=== PATIENT | female | born 1975 | race Caucasian/White ===

== ENCOUNTER → 2017-09-30 | Outpatient (CLI) | payer BC, OTHER ==
[~2017-09-30] MED LIST: CYCL-259 PO; GABA300C10 PO; HYDR-3307 PO; LAMO100T PO; LORA1TAB PO; ZOLP12.52 PO
[2017-09-30 15:30] LABS: HEMATOCRIT 38.2 % (34.6-47.8); HEMOGLOBIN 12.9 g/dL (11.7-16.4); WHITE BLOOD COUNT 6.7 x10^3/uL (3.4-10)
[2017-09-30 15:39] LABS: ASPARTATE AMINO TRANSFERASE 11 U/L (15-37); BLOOD UREA NITROGEN 10 mg/dL (7-18)
== END | disposition home or self-care (01) ==
LOC: STAR 13:59
PROVIDERS: ATTEND Neurological Surgery
DX: Z01.818 Encounter for other preprocedural examination (principal); R94.31 Abnormal electrocardiogram [ECG] [EKG]; M51.36 Other intervertebral disc degeneration, lumbar region
CPT/HCPCS: 36415; 71020; 80053; 81003; 85025; 85610; 85730; 93005

== ENCOUNTER 2017-10-04 05:19 | Inpatient (IN) | payer BC, OTHER ==
[~2017-10-04] VITALS: Ht 162.6 cm; Wt 79.3 kg
[~2017-10-04 05:19] MED LIST changes: -CYCL-259 PO; -LORA1TAB PO; -ZOLP12.52 PO
[2017-10-04] MEDS ORDERED: LACTATED RINGERS 1,000 ML IV SCH (06:00)
[2017-10-04 06:04] VITALS: BP 124/84
[2017-10-04] MEDS ORDERED: BACITRACIN 50,000 UNIT ONE (06:08)
[2017-10-04] MEDS ORDERED: THROMBIN 5,000 UNIT VIAL TP ONE (06:08)
[2017-10-04] MEDS ORDERED: EPINEPHRINE 1 MG/ML, 1ML ONE (06:09)
[2017-10-04] MEDS ORDERED: BUPIVACAINE/PF 0.5% ONE (06:09)
[2017-10-04 06:16] LABS: HCG UR LOT HCG706132
[2017-10-04 06:19] LABS: HCG UR OBC PASS
[2017-10-04] MEDS ORDERED: MIDAZOLAM 1 MG/ML, 2ML ONE (06:30)
[2017-10-04] MEDS ORDERED: FENTANYL PF 100 MCG/2ML ONE ×4 (06:31→08:53)
[2017-10-04] MEDS ORDERED: CYCL-259 PO (06:33)
[2017-10-04] MEDS ORDERED: PROPOFOL 10 MG/ML, 20ML ONE (06:33)
[2017-10-04] MEDS ORDERED: LORA1TAB PO (06:33)
[2017-10-04] MEDS ORDERED: ZOLP12.52 PO (06:33)
[2017-10-04] MEDS ORDERED: SODIUM CHLORIDE 0.9% PF 10ML ONE (06:34)
[2017-10-04] MEDS ORDERED: ROCURONIUM 10 MG/ML,10ML ONE (06:34)
[2017-10-04] MEDS ORDERED: CEFAZOLIN 1,000 MG ONE ×2 (06:34)
[2017-10-04] MEDS ORDERED: ONDANSETRON 2MG/ML, 2ML ONE (06:36)
[2017-10-04] MEDS ORDERED: DEXAMETHASONE 4 MG/ML, 1ML ONE ×2 (06:36)
[2017-10-04] MEDS ORDERED: SUCCINYLCHOLINE 20 MG/ML, 10ML ONE (06:36)
[2017-10-04] MEDS ORDERED: OXYcodone 5 MG/5 ML ORAL.SOL UDC PO PRN (07:30)
[2017-10-04] MEDS ORDERED: LABETALOL 5MG/ML, 20ML IV PRN ×2 (07:30→11:30)
[2017-10-04] MEDS ORDERED: HYDROmorphone 1 MG/ML, 1ML IV PRN (07:30)
[2017-10-04] MEDS ORDERED: FENTANYL PF 100 MCG/2ML IV PRN (07:30)
[2017-10-04] MEDS ORDERED: ACETAMINOPHEN 325 MG TABLET PO PRN (07:30)
[2017-10-04] MEDS ORDERED: MEPERIDINE/PF 25MG/0.5ML IVPush PRN (07:30)
[2017-10-04] MEDS ORDERED: hydrALAzine 20 MG/ML, 1ML IV PRN (07:30)
[2017-10-04] MEDS ORDERED: ONDANSETRON 2MG/ML, 2ML IVPush PRN (07:30)
[2017-10-04] MEDS ORDERED: PROMETHAZINE 25 MG/ML, 1ML IV PRN (07:30)
[2017-10-04] MEDS ORDERED: PROPOFOL 100 ML ONE (08:10)
[2017-10-04] MEDS ORDERED: GLYCOPYRROLATE 0.4 MG/2 ML, 2ML ONE (08:28)
[2017-10-04] MEDS ORDERED: NEOSTIGMINE 1 MG/ML, 10ML ONE (08:28)
[2017-10-04] MEDS ORDERED: HYDROmorphone PCA 30 MG/30 ML ONE (09:20)
[2017-10-04] MEDS ORDERED: OXYcodone 5 MG/5 ML ORAL.SOL UDC ONE (09:21)
[2017-10-04] MEDS: HYDROmorphone PCA 30 MG/30 ML IV PRN (09:40)
[2017-10-04] MEDS: DIAZEPAM 5 MG/ML, 2ML IVPush PRN ×2 (09:40→10:00)
[2017-10-04] MEDS ORDERED: HYDROmorphone 2MG TABLET PO PRN (11:00)
[2017-10-04] MEDS ORDERED: PROMETHAZINE 25 MG/ML, 1ML IM PRN (11:30)
[2017-10-04] MEDS ORDERED: ONDANSETRON 2MG/ML, 2ML IV PRN (11:30)
[2017-10-04] MEDS ORDERED: BISACODYL 10 MG SUPP PR PRN (11:30)
[2017-10-04] MEDS: CYCLOBENZAPRINE 10 MG TABLET PO SCH ×2 (11:30→19:46)
[2017-10-04] MEDS ORDERED: MAGNESIUM HYDROXIDE 8%, 30ML UDC PO PRN (11:30)
[2017-10-04] MEDS: D5%-0.9% NACL+KCL 20MEQ 1,000 ML IV SCH (12:12)
[2017-10-04 13:10] VITALS: BP 128/82
[2017-10-04] MEDS: CEFAZOLIN PMX 1GM/50ML 50 ML IVPB SCH ×2 (14:44→23:02)
[2017-10-04] MEDS: GABAPENTIN 300 MG CAPSULE PO SCH (20:43)
[2017-10-04] MEDS: LAMOTRIGINE 100 MG TABLET PO SCH (20:43)
[2017-10-04 21:00] VITALS: BP 112/69
[2017-10-04] MEDS: DIPHENHYDRAMINE 50 MG CAPSULE PO PRN (23:02)
[2017-10-04] MEDS: LORazepam 1MG TABLET PO PRN (23:02)
[2017-10-05] MEDS: D5%-0.9% NACL+KCL 20MEQ 1,000 ML IV SCH ×3 (00:13→17:01)
[2017-10-05 00:50] VITALS: BP 121/74
[2017-10-05 04:01] VITALS: BP 102/55
[2017-10-05] MEDS: CYCLOBENZAPRINE 10 MG TABLET PO SCH ×3 (04:05→20:01)
[2017-10-05 05:44] LABS: HEMOGLOBIN 11.5 g/dL (11.7-16.4); WHITE BLOOD COUNT 5.3 x10^3/uL (3.4-10)
[2017-10-05 05:50] LABS: BLOOD UREA NITROGEN 3 mg/dL (7-18)
[2017-10-05 07:11] VITALS: BP 107/73
[2017-10-05] MEDS: LAMOTRIGINE 100 MG TABLET PO SCH ×2 (08:12→20:50)
[2017-10-05] MEDS: GABAPENTIN 300 MG CAPSULE PO SCH ×2 (08:12→20:49)
[2017-10-05] MEDS: SENNA/DOCUSATE TABLET PO SCH (08:12)
[2017-10-05] MEDS ORDERED: METHOCARBAMOL 750 MG in DEXTROSE 5% 100 ML IV PRN (09:30)
[2017-10-05] MEDS: POLYETHYLENE GLYCOL 17 GM PACKET PO SCH (09:50)
[2017-10-05] MEDS: DEXAMETHASONE 4 MG/ML, 1ML IV SCH ×3 (09:50→21:41)
[2017-10-05] MEDS: FAMOTIDINE 20 MG TABLET PO SCH ×2 (09:50→20:50)
[2017-10-05] MEDS: ENOXAPARIN 30 MG/0.3 ML SQ SCH ×2 (09:50→21:41)
[2017-10-05 12:54] VITALS: BP 116/70
[2017-10-05 19:36] VITALS: BP 129/83
[2017-10-05] MEDS: LORazepam 1MG TABLET PO PRN (21:46)
[2017-10-05] MEDS: DIPHENHYDRAMINE 50 MG CAPSULE PO PRN (21:47)
[2017-10-06 00:17] VITALS: BP 116/77
[2017-10-06] MEDS: CYCLOBENZAPRINE 10 MG TABLET PO SCH ×3 (03:43→19:56)
[2017-10-06] MEDS: DEXAMETHASONE 4 MG/ML, 1ML IV SCH ×3 (03:44→15:52)
[2017-10-06] MEDS: D5%-0.9% NACL+KCL 20MEQ 1,000 ML IV SCH ×2 (05:00→15:00)
[2017-10-06 05:14] LABS: HEMATOCRIT 34.3 % (34.6-47.8); HEMOGLOBIN 11.5 g/dL (11.7-16.4); WHITE BLOOD COUNT 6.8 x10^3/uL (3.4-10)
[2017-10-06 05:22] LABS: BLOOD UREA NITROGEN 5 mg/dL (7-18)
[2017-10-06 07:35] VITALS: BP 112/72
[2017-10-06] MEDS: POLYETHYLENE GLYCOL 17 GM PACKET PO SCH (09:16)
[2017-10-06] MEDS: SENNA/DOCUSATE TABLET PO SCH (09:16)
[2017-10-06] MEDS: GABAPENTIN 300 MG CAPSULE PO SCH ×2 (09:16→19:56)
[2017-10-06] MEDS: LAMOTRIGINE 100 MG TABLET PO SCH ×2 (09:16→19:56)
[2017-10-06] MEDS: FAMOTIDINE 20 MG TABLET PO SCH ×2 (09:16→19:57)
[2017-10-06] MEDS: ENOXAPARIN 30 MG/0.3 ML SQ SCH (09:18)
[2017-10-06 13:22] VITALS: BP 110/71
[2017-10-06 21:38] VITALS: BP 113/73
[2017-10-07] MEDS: DEXAMETHASONE 4 MG/ML, 1ML IV SCH ×5 (00:42→22:39)
[2017-10-07] MEDS: ENOXAPARIN 30 MG/0.3 ML SQ SCH (00:44)
[2017-10-07] MEDS: LACTATED RINGERS 1,000 ML IV SCH ×2 (00:45→09:45)
[2017-10-07] MEDS: DIPHENHYDRAMINE 50 MG CAPSULE PO PRN (00:48)
[2017-10-07] MEDS: LORazepam 1MG TABLET PO PRN (00:48)
[2017-10-07 02:00] VITALS: BP 92/58
[2017-10-07] MEDS: CYCLOBENZAPRINE 10 MG TABLET PO SCH ×3 (04:42→22:40)
[2017-10-07 05:37] LABS: HEMATOCRIT 34.3 % (34.6-47.8); HEMOGLOBIN 11.4 g/dL (11.7-16.4); WHITE BLOOD COUNT 7.7 x10^3/uL (3.4-10)
[2017-10-07 05:48] LABS: BLOOD UREA NITROGEN 11 mg/dL (7-18)
[2017-10-07] MEDS ORDERED: BUPIVACAINE 0.25% ONE (06:05)
[2017-10-07] MEDS ORDERED: THROMBIN 5,000 UNIT VIAL TP ONE (06:05)
[2017-10-07] MEDS ORDERED: EPINEPHRINE 1 MG/ML, 1ML ONE (06:05)
[2017-10-07] MEDS ORDERED: BUPIVACAINE/PF 0.5% ONE (06:05)
[2017-10-07] MEDS ORDERED: BACITRACIN 50,000 UNIT ONE (06:06)
[2017-10-07] MEDS ORDERED: LACTATED RINGERS 300 ML IV SCH (08:00)
[2017-10-07] MEDS: POLYETHYLENE GLYCOL 17 GM PACKET PO SCH (08:52)
[2017-10-07] MEDS: LAMOTRIGINE 100 MG TABLET PO SCH ×2 (08:52→22:40)
[2017-10-07] MEDS: GABAPENTIN 300 MG CAPSULE PO SCH ×2 (08:53→22:40)
[2017-10-07] MEDS: SENNA/DOCUSATE TABLET PO SCH (08:53)
[2017-10-07] MEDS: FAMOTIDINE 20 MG TABLET PO SCH ×2 (08:53→22:39)
[2017-10-07 10:15] VITALS: BP 105/69
[2017-10-07] MEDS ORDERED: MIDAZOLAM 1 MG/ML, 2ML ONE (13:06)
[2017-10-07] MEDS ORDERED: FENTANYL PF 250 MCG/5ML ONE (13:06)
[2017-10-07] MEDS ORDERED: PROPOFOL 50 ML ONE ×4 (13:06→17:15)
[2017-10-07] MEDS ORDERED: SUCCINYLCHOLINE 20 MG/ML, 10ML ONE (14:06)
[2017-10-07] MEDS ORDERED: ONDANSETRON 2MG/ML, 2ML ONE (14:06)
[2017-10-07] MEDS ORDERED: ROCURONIUM 10 MG/ML,10ML ONE (14:06)
[2017-10-07] MEDS ORDERED: hydrALAzine 20 MG/ML, 1ML IV PRN (17:00)
[2017-10-07] MEDS ORDERED: ACETAMINOPHEN 325 MG TABLET PO PRN (17:00)
[2017-10-07] MEDS ORDERED: EPHEDRINE 50 MG/ML, 1ML IVPush PRN (17:00)
[2017-10-07] MEDS ORDERED: LABETALOL 5MG/ML, 20ML IV PRN (17:00)
[2017-10-07] MEDS ORDERED: METOPROLOL 1 MG/ML, 5ML IV PRN (17:00)
[2017-10-07] MEDS ORDERED: ONDANSETRON 2MG/ML, 2ML IVPush PRN (17:00)
[2017-10-07] MEDS ORDERED: OXYcodone 5 MG/5 ML ORAL.SOL UDC PO PRN (17:00)
[2017-10-07] MEDS ORDERED: PROMETHAZINE 25 MG/ML, 1ML IV PRN (17:00)
[2017-10-07] MEDS ORDERED: MIDAZOLAM 1 MG/ML, 2ML IV PRN (17:00)
[2017-10-07] MEDS ORDERED: HYDROcodone/APAP 7.5-325MG/15ML UDC PO PRN (17:00)
[2017-10-07] MEDS ORDERED: DIAZEPAM 5 MG/ML, 2ML IVPush PRN (17:00)
[2017-10-07] MEDS ORDERED: ALBUTEROL SULFATE 2.5 MG/3 ML NPPB PRN (17:00)
[2017-10-07] MEDS ORDERED: MEPERIDINE/PF 25MG/0.5ML IVPush PRN (17:00)
[2017-10-07] MEDS ORDERED: FENTANYL PF 100 MCG/2ML IV PRN (17:00)
[2017-10-07] MEDS ORDERED: PHARMACY MAY ADJ FOR RENAL FX MC PRN (18:30)
[2017-10-07] MEDS ORDERED: OXYcodone 5 MG/5 ML ORAL.SOL UDC ONE (19:02)
[2017-10-07] MEDS ORDERED: ACETAMINOPHEN 650 MG/20.3 ML UDC ONE (19:02)
[2017-10-07] MEDS ORDERED: HYDROmorphone 2 MG/ML, 1ML ONE (19:06)
[2017-10-07] MEDS: HYDROmorphone 2 MG/ML, 1ML IV PRN ×2 (19:08→19:22)
[2017-10-07 20:00] VITALS: BP 133/77
[2017-10-07] MEDS: D5%-0.9% NACL+KCL 20MEQ 1,000 ML IV SCH (22:38)
[2017-10-07] MEDS: CEFAZOLIN PMX 1GM/50ML 50 ML IVPB SCH (22:39)
[2017-10-07] MEDS: SODIUM CHLORIDE FLUSH 10ML SYR IVF SCH (22:41)
[2017-10-07 23:43] VITALS: BP 120/67
[2017-10-08] MEDS: LORazepam 1MG TABLET PO PRN (02:22)
[2017-10-08] MEDS: HYDROmorphone PCA 30 MG/30 ML IV PRN (02:22)
[2017-10-08] MEDS: DIPHENHYDRAMINE 50 MG CAPSULE PO PRN (02:22)
[2017-10-08 03:29] VITALS: BP 116/73
[2017-10-08] MEDS: DEXAMETHASONE 4 MG/ML, 1ML IV SCH ×4 (03:43→21:42)
[2017-10-08 05:40] LABS: HEMOGLOBIN 10.3 g/dL (11.7-16.4); WHITE BLOOD COUNT 8.8 x10^3/uL (3.4-10)
[2017-10-08 05:43] LABS: BLOOD UREA NITROGEN 8 mg/dL (7-18)
[2017-10-08] MEDS: CEFAZOLIN PMX 1GM/50ML 50 ML IVPB SCH (06:24)
[2017-10-08] MEDS: CYCLOBENZAPRINE 10 MG TABLET PO SCH ×3 (06:24→21:42)
[2017-10-08 07:30] VITALS: BP 110/66
[2017-10-08] MEDS: LACTATED RINGERS 1,000 ML IV SCH ×2 (07:34→16:22)
[2017-10-08] MEDS ORDERED: OXYcodone IR 5MG TABLET PO PRN (09:00)
[2017-10-08] MEDS ORDERED: HYDROmorphone PCA 30 MG/30 ML IV PRN (09:00)
[2017-10-08] MEDS: D5%-0.9% NACL+KCL 20MEQ 1,000 ML IV SCH ×2 (10:09→16:22)
[2017-10-08] MEDS: SODIUM CHLORIDE FLUSH 10ML SYR IVF SCH ×2 (10:09→21:00)
[2017-10-08] MEDS: FAMOTIDINE 20 MG TABLET PO SCH ×2 (10:10→21:00)
[2017-10-08] MEDS: POLYETHYLENE GLYCOL 17 GM PACKET PO SCH (10:10)
[2017-10-08] MEDS: GABAPENTIN 300 MG CAPSULE PO SCH ×2 (10:10→21:00)
[2017-10-08] MEDS: HYDROcodone/APAP 10/325 MG TABLET PO PRN ×4 (10:10→22:08)
[2017-10-08] MEDS: LAMOTRIGINE 100 MG TABLET PO SCH ×2 (10:10→21:00)
[2017-10-08] MEDS: SENNA/DOCUSATE TABLET PO SCH (10:10)
[2017-10-08 13:40] VITALS: BP 118/80
[2017-10-08 21:19] VITALS: BP 106/66
[2017-10-09] MEDS: LORazepam 1MG TABLET PO PRN ×2 (00:09→23:25)
[2017-10-09] MEDS: DIPHENHYDRAMINE 50 MG CAPSULE PO PRN (00:09)
[2017-10-09] MEDS: HYDROcodone/APAP 10/325 MG TABLET PO PRN ×5 (02:34→21:57)
[2017-10-09] MEDS: D5%-0.9% NACL+KCL 20MEQ 1,000 ML IV SCH ×3 (03:20→21:54)
[2017-10-09] MEDS: LACTATED RINGERS 1,000 ML IV SCH ×2 (03:20→15:39)
[2017-10-09] MEDS: DEXAMETHASONE 4 MG/ML, 1ML IV SCH ×4 (03:36→21:53)
[2017-10-09 03:57] VITALS: BP 105/70
[2017-10-09 05:32] LABS: HEMOGLOBIN 9.8 g/dL (11.7-16.4); WHITE BLOOD COUNT 7.6 x10^3/uL (3.4-10)
[2017-10-09 05:39] LABS: BLOOD UREA NITROGEN 9 mg/dL (7-18)
[2017-10-09] MEDS: CYCLOBENZAPRINE 10 MG TABLET PO SCH ×3 (06:07→21:53)
[2017-10-09 07:52] VITALS: BP 111/72
[2017-10-09] MEDS ORDERED: HYDROmorphone 2 MG/ML, 1ML ONE ×3 (09:30→19:45)
[2017-10-09] MEDS: HYDROmorphone 1 MG/ML, 1ML IVPush PRN ×2 (09:32→14:15)
[2017-10-09] MEDS: SODIUM CHLORIDE FLUSH 10ML SYR IVF SCH ×2 (09:33→21:00)
[2017-10-09] MEDS: GABAPENTIN 300 MG CAPSULE PO SCH ×2 (10:19→21:11)
[2017-10-09] MEDS: LAMOTRIGINE 100 MG TABLET PO SCH ×2 (10:19→21:11)
[2017-10-09] MEDS: POLYETHYLENE GLYCOL 17 GM PACKET PO SCH (10:20)
[2017-10-09] MEDS: FAMOTIDINE 20 MG TABLET PO SCH ×2 (10:20→21:11)
[2017-10-09] MEDS: SENNA/DOCUSATE TABLET PO SCH (10:20)
[2017-10-09 13:15] VITALS: BP 121/79
[2017-10-09 19:39] VITALS: BP 113/73
[2017-10-09] MEDS: HYDROmorphone 2 MG/ML, 1ML IV PRN (19:47)
[2017-10-10] MEDS: DEXAMETHASONE 4 MG/ML, 1ML IV SCH ×4 (03:27→21:47)
[2017-10-10 03:31] VITALS: BP 101/63
[2017-10-10] MEDS: HYDROcodone/APAP 10/325 MG TABLET PO PRN ×5 (03:33→23:30)
[2017-10-10] MEDS: CYCLOBENZAPRINE 10 MG TABLET PO SCH ×3 (06:00→21:47)
[2017-10-10] MEDS: LACTATED RINGERS 1,000 ML IV SCH ×2 (06:25→20:46)
[2017-10-10] MEDS: SODIUM CHLORIDE FLUSH 10ML SYR IVF SCH ×2 (08:29→21:31)
[2017-10-10] MEDS: SENNA/DOCUSATE TABLET PO SCH (08:29)
[2017-10-10] MEDS: FAMOTIDINE 20 MG TABLET PO SCH ×2 (08:29→20:49)
[2017-10-10] MEDS: GABAPENTIN 300 MG CAPSULE PO SCH ×2 (08:30→20:49)
[2017-10-10] MEDS: POLYETHYLENE GLYCOL 17 GM PACKET PO SCH (08:31)
[2017-10-10] MEDS: LAMOTRIGINE 100 MG TABLET PO SCH ×2 (08:31→20:49)
[2017-10-10] MEDS: D5%-0.9% NACL+KCL 20MEQ 1,000 ML IV SCH ×2 (10:30→20:30)
[2017-10-10] MEDS ORDERED: HYDROmorphone 2 MG/ML, 1ML ONE ×2 (11:15→16:26)
[2017-10-10] MEDS: HYDROmorphone 2 MG/ML, 1ML IV PRN ×2 (11:17→21:53)
[2017-10-10 15:44] VITALS: BP 126/80
[2017-10-10 21:45] VITALS: BP 119/79
[2017-10-10] MEDS: HYDROmorphone 1 MG/ML, 1ML IVPush PRN (21:53)
[2017-10-11] MEDS: LORazepam 1MG TABLET PO PRN (00:49)
[2017-10-11 03:11] VITALS: BP 111/73
[2017-10-11] MEDS: HYDROcodone/APAP 10/325 MG TABLET PO PRN ×4 (03:35→21:41)
[2017-10-11] MEDS: DEXAMETHASONE 4 MG/ML, 1ML IV SCH (03:35)
[2017-10-11] MEDS: D5%-0.9% NACL+KCL 20MEQ 1,000 ML IV SCH ×2 (04:24→15:24)
[2017-10-11] MEDS: CYCLOBENZAPRINE 10 MG TABLET PO SCH ×3 (05:49→21:43)
[2017-10-11] MEDS ORDERED: methylPREDNISolone 4mg DOSE PACK PO SCH (07:00)
[2017-10-11] MEDS ORDERED: HYDROmorphone 2 MG/ML, 1ML ONE ×2 (09:50→15:17)
[2017-10-11] MEDS: HYDROmorphone 2 MG/ML, 1ML IV PRN ×2 (09:52→15:20)
[2017-10-11] MEDS: SODIUM CHLORIDE FLUSH 10ML SYR IVF SCH ×2 (10:00→21:41)
[2017-10-11] MEDS: FAMOTIDINE 20 MG TABLET PO SCH ×2 (10:00→21:06)
[2017-10-11] MEDS: LAMOTRIGINE 100 MG TABLET PO SCH ×2 (10:00→21:06)
[2017-10-11] MEDS: POLYETHYLENE GLYCOL 17 GM PACKET PO SCH (10:01)
[2017-10-11] MEDS: SENNA/DOCUSATE TABLET PO SCH (10:01)
[2017-10-11] MEDS: GABAPENTIN 300 MG CAPSULE PO SCH ×2 (10:01→21:06)
[2017-10-11 10:10] VITALS: BP 129/81
[2017-10-11] MEDS: LACTATED RINGERS 1,000 ML IV SCH (12:00)
[2017-10-11 17:25] VITALS: BP 121/75
[2017-10-11 21:20] VITALS: BP 110/72
[2017-10-12] MEDS: LORazepam 1MG TABLET PO PRN ×2 (00:05→23:46)
[2017-10-12] MEDS: LACTATED RINGERS 1,000 ML IV SCH ×2 (01:20→13:00)
[2017-10-12] MEDS: D5%-0.9% NACL+KCL 20MEQ 1,000 ML IV SCH ×3 (02:30→22:30)
[2017-10-12 03:46] VITALS: BP 117/80
[2017-10-12] MEDS: HYDROcodone/APAP 10/325 MG TABLET PO PRN ×5 (03:55→22:06)
[2017-10-12 07:38] VITALS: BP 110/71
[2017-10-12] MEDS: CYCLOBENZAPRINE 10 MG TABLET PO SCH ×3 (09:38→23:46)
[2017-10-12] MEDS: FAMOTIDINE 20 MG TABLET PO SCH ×2 (09:39→20:23)
[2017-10-12] MEDS: GABAPENTIN 300 MG CAPSULE PO SCH ×2 (09:39→20:24)
[2017-10-12] MEDS: LAMOTRIGINE 100 MG TABLET PO SCH ×2 (09:39→20:23)
[2017-10-12] MEDS: SENNA/DOCUSATE TABLET PO SCH (09:39)
[2017-10-12] MEDS: POLYETHYLENE GLYCOL 17 GM PACKET PO SCH (09:39)
[2017-10-12] MEDS: SODIUM CHLORIDE FLUSH 10ML SYR IVF SCH ×2 (09:40→22:06)
[2017-10-12] MEDS ORDERED: HYDROmorphone 2 MG/ML, 1ML ONE (11:37)
[2017-10-12] MEDS: HYDROmorphone 2 MG/ML, 1ML IV PRN (11:41)
[2017-10-12 11:53] VITALS: BP 110/68
[2017-10-12 18:56] VITALS: BP 111/71
[2017-10-13 00:50] VITALS: BP 118/71
[2017-10-13] MEDS: LACTATED RINGERS 1,000 ML IV SCH (04:00)
[2017-10-13] MEDS: HYDROcodone/APAP 10/325 MG TABLET PO PRN ×3 (04:26→12:31)
[2017-10-13] MEDS ORDERED: HYDROmorphone 2 MG/ML, 1ML ONE (04:49)
[2017-10-13] MEDS: HYDROmorphone 2 MG/ML, 1ML IV PRN (04:52)
[2017-10-13 07:30] VITALS: BP 112/73
[2017-10-13] MEDS: D5%-0.9% NACL+KCL 20MEQ 1,000 ML IV SCH (08:30)
[2017-10-13] MEDS: FAMOTIDINE 20 MG TABLET PO SCH (08:40)
[2017-10-13] MEDS: SENNA/DOCUSATE TABLET PO SCH (08:40)
[2017-10-13] MEDS: POLYETHYLENE GLYCOL 17 GM PACKET PO SCH (08:40)
[2017-10-13] MEDS: CYCLOBENZAPRINE 10 MG TABLET PO SCH (08:40)
[2017-10-13] MEDS: GABAPENTIN 300 MG CAPSULE PO SCH (08:40)
[2017-10-13] MEDS: SODIUM CHLORIDE FLUSH 10ML SYR IVF SCH (08:41)
[2017-10-13] MEDS: LAMOTRIGINE 100 MG TABLET PO SCH (08:41)
[2017-10-13] MEDS ORDERED: FAMO-79 PO (09:41)
[2017-10-13] MEDS ORDERED: POLY17PO5 PO (09:41)
[2017-10-13] MEDS ORDERED: SENN1TAB7 PO (09:42)
[2017-10-13] MEDS ORDERED: BISA10SU54 PR (09:42)
[2017-10-13] MEDS ORDERED: DIPH25CA61 PO (09:42)
[2017-10-13] MEDS ORDERED: HYDR-3307 PO (09:43)
[2017-10-13] MEDS ORDERED: HYDR2TAB29 PO (09:44)
[2017-10-13] MEDS ORDERED: MAGN400O7 PO (09:46)
[2017-10-13] MEDS ORDERED: PROM50VI IM (09:47)
[2017-10-13] MEDS ORDERED: FLU VACC QS2017-18 (36MOS+) UP/PF 0.5 ML IM-VACC ONE (10:30)
[2017-10-13 12:49] VITALS: BP 122/81
[2017-10-13] MEDS ORDERED: METH4TAB2 PO (12:55)
== END 2017-10-13 13:57 | DRG 460 ==
LOC: ORIP 05:19 → 4NOR 10:30
PROVIDERS: ADMIT Neurological Surgery; ATTEND Neurological Surgery
PROC: 0SG30A0 Fusion of Lumbosacral Joint with Interbody Fusion Device, Anterior Approach, Anterior Column, Open Approach (ICD-10-PCS; 2017-10-04)
PROC: 0SB20ZZ Excision of Lumbar Vertebral Disc, Open Approach (ICD-10-PCS; 2017-10-04)
PROC: 0SB40ZZ Excision of Lumbosacral Disc, Open Approach (ICD-10-PCS; 2017-10-04)
PROC: 01NB0ZZ Release Lumbar Nerve, Open Approach (ICD-10-PCS; 2017-10-04)
PROC: 4A11X4G Monitoring of Peripheral Nervous Electrical Activity, Intraoperative, External Approach (ICD-10-PCS; 2017-10-04)
PROC: 0SG00A0 Fusion of Lumbar Vertebral Joint with Interbody Fusion Device, Anterior Approach, Anterior Column, Open Approach (ICD-10-PCS; principal; 2017-10-04 07:30)
DX: M48.061 Spinal stenosis, lumbar region without neurogenic claudication (principal); G83.9 Paralytic syndrome, unspecified; G40.909 Epilepsy, unspecified, not intractable, without status epilepticus; G83.14 Monoplegia of lower limb affecting left nondominant side; G89.4 Chronic pain syndrome; M51.16 Intervertebral disc disorders with radiculopathy, lumbar region; Z98.84 Bariatric surgery status
CPT/HCPCS: 36415; 70551; 72100; 72131; 72141; 72148; 74000; 80048; 81025; 85025; 85610; 90686; C1713; C1767; J0171; J0690; J1100; J1170; J1650; J2250; J2405; J2704; J2710; J3010; J3360; J3490; J7120; J7509; C1760; C1762; J0330; J3480

== ENCOUNTER 2020-08-13 02:04 | Inpatient (IN) | payer OTHER ==
[~2020-08-13] VITALS: Ht 162.6 cm; Wt 69.3 kg
[~2020-08-13 02:04] MED LIST changes: +BISA10SU54 PR; +CYCL-259 PO; +DIPH25CA61 PO; +FAMO-79 PO; +HYDR-3246 PO; -HYDR-3307 PO; +HYDR2TAB29 PO; -LAMO100T PO; +LAMO100T8 PO; +LORA1TAB PO; +MAGN400O7 PO; +METH4TAB2 PO; +POLY17PO5 PO; +PROM50VI IM; +SENN-177 PO; +ZOLP12.52 PO
--- NOTE | 2020-08-13 02:25 | NUR ---
THIS PT PRESENTS TO THE ER FROM [facility] FOR HIDA SCAN. PT IS STATUS POST OP FROM AN ABD SX FOR A DUODENAL PERFERACTION ON 07/26. PT STATES HER PAIN BECAME WORSE TODAY SO SHE WENT TO THE HOSPITAL. PT HAS A HX OF LOW BLOOD SUGARS FROM UNKNOWN CAUSE, STATES SHE WAS TOLD SHE HAS A POSSIBLE PANCREATIC MASS, WORK UP STILL IN PROGRESS. PT PLACED ON BP AND O2 MONITORS. ERP TO BEDSIDE. PT UPDATED ON POC, BEDRAILS UP X2, CALL LIGHT IN REACH.
[2020-08-13 02:30] LABS: BASOPHILS % (AUTO) 1 % (0-1); EOSINOPHILS % (AUTO) 1 % (1-7); LYMPHOCYTES % (AUTO) 33 % (22-44); MEAN CORPUSCULAR HEMOGLOBIN 27.9 pg (27.0-34.8); MEAN CORPUSCULAR HGB CONC 32.9 g/dL (32.4-35.8); MEAN PLATELET VOLUME 6.5 fL (7.4-10.4); MONOCYTES % (AUTO) 11 % (2-9); NEUTROPHILS % (AUTO) 54 % (42-75); PLATELET COUNT 669 x10^3/uL (130-400); RED BLOOD COUNT 3.74 x10^6/uL (3.82-5.3); RED CELL DISTRIBUTION WIDTH 14.4 % (9.6-15.2)
[2020-08-13] MEDS ORDERED: SODIUM CHLORIDE FLUSH 10ML SYR IVF ONE (02:30)
[2020-08-13] MEDS ORDERED: HYDROmorphone 2 MG/ML, 1ML IVPush PRN (02:30)
[2020-08-13] MEDS ORDERED: SODIUM CHLORIDE 0.9% 1,000 ML IV ONE (02:30)
[2020-08-13] MEDS ORDERED: ONDANSETRON 2MG/ML, 2ML IVPush ONE (02:30)
[2020-08-13 02:32] LABS: MD NO
[2020-08-13] MEDS ORDERED: ONDANSETRON 2MG/ML, 2ML ONE (02:33)
[2020-08-13] MEDS ORDERED: HYDROmorphone 1 MG/ML, 1ML INJ ONE ×2 (02:33→07:38)
[2020-08-13 02:43] LABS: ALANINE AMINOTRANSFERASE 14 U/L (12-78); ALBUMIN 3.2 g/dL (3.4-5.0); ANION GAP 5 mmol/L (5-15); CALCIUM 8.7 mg/dL (8.5-10.1); CHLORIDE 107 mmol/L (98-107); CREATININE 0.62 mg/dL (0.55-1.02)
[2020-08-13 02:48] LABS: ALKALINE PHOSPHATASE 128 U/L (45-117); BILIRUBIN,TOTAL 0.3 mg/dL (0.2-1.0); TOTAL PROTEIN 6.9 g/dL (6.4-8.2)
--- NOTE | 2020-08-13 03:08 | NUR ---
BEDSIDE REPORT TO BETZAIDA MEYERS.
--- NOTE | 2020-08-13 03:10 | NUR ---
assumed care of pt. report from Lili HUSTON. pt transfered here for evaluation of abd pain and HIDA scan. pt is 2 weeks s/p open abd procedure for bowel perforation with washout. pt has well approximated well healing vertical abd wound, no drainage noted pt denies pain after meds. IV fluids infusing pt to be admitted. no family at bedside. pt has no other c//o at this time. no apparent distress
--- NOTE | 2020-08-13 03:23 | NUR ---
bed assignment recived. attempting to call report
--- NOTE | 2020-08-13 03:26 | NUR ---
report called to Nery HUSTON
[2020-08-13 04:12] VITALS: BP 135/81
[2020-08-13] MEDS ORDERED: ESLI800T PO (04:45)
[2020-08-13] MEDS ORDERED: FURO40TA6 PO (04:45)
[2020-08-13] MEDS ORDERED: METO50TA82 PO (04:45)
[2020-08-13] MEDS ORDERED: POTASSIUM CHLORIDE PO (04:45)
[2020-08-13 08:00] VITALS: BP 130/87
[2020-08-13] MEDS ORDERED: HYDROmorphone 1 MG/ML, 1ML INJ IV PRN (08:00)
[2020-08-13] MEDS ORDERED: FUROSEMIDE 40 MG TABLET PO PRN (08:30)
[2020-08-13] MEDS ORDERED: DOCUSATE 100 MG CAPSULE PO PRN (09:00)
[2020-08-13] MEDS ORDERED: DIPHENHYDRAMINE 25 MG CAPSULE PO PRN (09:00)
[2020-08-13] MEDS ORDERED: LABETALOL 5MG/ML, 20ML IVPush PRN (09:00)
[2020-08-13] MEDS ORDERED: PROMETHAZINE 25 MG/ML, 1ML IM PRN (09:00)
[2020-08-13] MEDS ORDERED: BISACODYL 10 MG SUPP PR PRN (09:00)
[2020-08-13] MEDS ORDERED: METOCLOPRAMIDE 5 MG/ML, 2ML IVPush PRN (09:00)
[2020-08-13] MEDS ORDERED: POLYETHYLENE GLYCOL 17 GM PACKET PO PRN (09:00)
[2020-08-13] MEDS ORDERED: LACTATED RINGERS 1,000 ML IV SCH (09:00)
[2020-08-13] MEDS ORDERED: MELATONIN 5 MG TABLET PO PRN (09:00)
[2020-08-13] MEDS ORDERED: LIDODERM 5% PATCH TD PRN (09:00)
[2020-08-13] MEDS: CEFTRIAXONE PMX 2GM/50ML 50 ML IVPB SCH (10:31)
[2020-08-13] MEDS: SENNA/DOCUSATE TABLET PO SCH (10:31)
[2020-08-13] MEDS: METRONIDAZOLE PMX 500MG/100ML 100 ML IV SCH ×2 (11:17→20:40)
[2020-08-13] MEDS: HYDROmorphone 1 MG/ML, 1ML INJ IV PRN ×4 (11:17→21:28)
[2020-08-13 12:32] LABS: INTERNATIONAL NORMALIZED RATIO 1.12 (0.93-1.1); PROTHROMBIN TIME 11.9 Seconds (9.6-11.5)
[2020-08-13 13:53] VITALS: BP 123/79
[2020-08-13] MEDS ORDERED: FLUMAZENIL 0.1 MG/1 ML, 5ML ONE (16:34)
[2020-08-13] MEDS ORDERED: NALOXONE 1 MG/ML, 2ML ONE (16:34)
[2020-08-13] MEDS ORDERED: MIDAZOLAM 1 MG/ML, 5ML ONE (16:34)
[2020-08-13] MEDS ORDERED: FENTANYL PF 100 MCG/2ML ONE ×2 (16:34)
[2020-08-13] MEDS: PANTOPRAZOLE 40 MG IV IVPush SCH (18:18)
[2020-08-13 19:10] VITALS: BP 128/84
[2020-08-13] MEDS ORDERED: HYDROmorphone 1 MG/ML, 1ML INJ IV ONE (20:00)
[2020-08-13] MEDS ORDERED: TRAZ-175 PO (20:08)
[2020-08-13] MEDS: D5%-LACTATED RINGERS 1,000 ML IV SCH (20:42)
[2020-08-13 23:34] VITALS: BP 119/78
[2020-08-14] MEDS: HYDROmorphone 1 MG/ML, 1ML INJ IV PRN ×6 (00:45→19:56)
[2020-08-14] MEDS ORDERED: DEXTROSE 50%, 50ML SYRINGE IVPush PRN (01:30)
[2020-08-14] MEDS ORDERED: GLUCAGON 1 MG IM PRN (01:30)
[2020-08-14] MEDS ORDERED: DEXTROSE 4 GM TAB.CHEW PO PRN (01:30)
[2020-08-14] MEDS: HYDROcodone/APAP 10/325 MG TABLET PO PRN ×5 (02:38→22:25)
[2020-08-14 03:26] VITALS: BP 127/85
[2020-08-14] MEDS: METRONIDAZOLE PMX 500MG/100ML 100 ML IV SCH ×3 (03:53→19:48)
[2020-08-14 06:46] LABS: BASOPHILS % (AUTO) 1 % (0-1); EOSINOPHILS % (AUTO) 5 % (1-7); LYMPHOCYTES % (AUTO) 28 % (22-44); MEAN CORPUSCULAR HEMOGLOBIN 27.5 pg (27.0-34.8); MEAN CORPUSCULAR HGB CONC 32.7 g/dL (32.4-35.8); MEAN PLATELET VOLUME 6.8 fL (7.4-10.4); MONOCYTES % (AUTO) 10 % (2-9); NEUTROPHILS % (AUTO) 56 % (42-75); PLATELET COUNT 528 x10^3/uL (130-400); RED BLOOD COUNT 3.45 x10^6/uL (3.82-5.3); RED CELL DISTRIBUTION WIDTH 14.6 % (9.6-15.2)
[2020-08-14 06:48] LABS: MD NO
[2020-08-14 06:57] LABS: ANION GAP 6 mmol/L (5-15); CALCIUM 8.7 mg/dL (8.5-10.1); CHLORIDE 106 mmol/L (98-107)
[2020-08-14 06:58] LABS: CREATININE 0.49 mg/dL (0.55-1.02)
[2020-08-14 07:31] VITALS: BP 123/84
[2020-08-14] MEDS: PANTOPRAZOLE 40 MG IV IVPush SCH ×2 (08:52→15:58)
[2020-08-14] MEDS: SENNA/DOCUSATE TABLET PO SCH (08:52)
[2020-08-14] MEDS: CEFTRIAXONE PMX 2GM/50ML 50 ML IVPB SCH (08:53)
[2020-08-14] MEDS: SODIUM CHLORIDE FLUSH 10ML SYR IVF SCH ×2 (08:54→19:48)
[2020-08-14] MEDS ORDERED: MAGNESIUM SULFATE PMX 2GM/50ML 50 ML IV ONE (09:00)
[2020-08-14] MEDS ORDERED: POTASSIUM CHLORIDE 20 MEQ TAB.ER.PRT PO ONE (09:00)
[2020-08-14 12:37] VITALS: BP 146/89
[2020-08-14] MEDS: D5%-LACTATED RINGERS 1,000 ML IV SCH (17:00)
[2020-08-14 20:49] VITALS: BP 125/82
[2020-08-15] MEDS: HYDROmorphone 1 MG/ML, 1ML INJ IV PRN ×6 (00:42→21:34)
[2020-08-15 01:16] VITALS: BP 137/85
[2020-08-15] MEDS: METRONIDAZOLE PMX 500MG/100ML 100 ML IV SCH ×3 (03:27→20:30)
[2020-08-15] MEDS: HYDROcodone/APAP 10/325 MG TABLET PO PRN ×5 (03:30→22:43)
[2020-08-15 04:58] LABS: BASOPHILS % (AUTO) 1 % (0-1); EOSINOPHILS % (AUTO) 7 % (1-7); LYMPHOCYTES % (AUTO) 36 % (22-44); MEAN CORPUSCULAR HGB CONC 33.1 g/dL (32.4-35.8); MEAN PLATELET VOLUME 6.6 fL (7.4-10.4); MONOCYTES % (AUTO) 12 % (2-9); NEUTROPHILS % (AUTO) 44 % (42-75); PLATELET COUNT 517 x10^3/uL (130-400); RED BLOOD COUNT 3.47 x10^6/uL (3.82-5.3)
[2020-08-15 05:06] LABS: MD NO
[2020-08-15 05:08] LABS: CHLORIDE 105 mmol/L (98-107)
[2020-08-15 05:13] LABS: ANION GAP 5 mmol/L (5-15); CALCIUM 8.5 mg/dL (8.5-10.1)
[2020-08-15] MEDS ORDERED: POTASSIUM CHLORIDE 20 MEQ TAB.ER.PRT PO ONE (06:30)
[2020-08-15 07:16] VITALS: BP 129/79
[2020-08-15] MEDS: PANTOPRAZOLE 40 MG IV IVPush SCH ×2 (08:05→17:00)
[2020-08-15] MEDS: SODIUM CHLORIDE FLUSH 10ML SYR IVF SCH ×2 (08:05→20:32)
[2020-08-15] MEDS: SENNA/DOCUSATE TABLET PO SCH (08:05)
[2020-08-15] MEDS: POLYETHYLENE GLYCOL 17 GM PACKET PO SCH ×2 (09:30→20:17)
[2020-08-15] MEDS: D5%-LACTATED RINGERS 1,000 ML IV SCH (10:13)
[2020-08-15] MEDS: CEFTRIAXONE PMX 2GM/50ML 50 ML IVPB SCH (10:54)
[2020-08-15] MEDS: ONDANSETRON 2MG/ML, 2ML IVPush PRN ×2 (12:06→20:44)
[2020-08-15 13:12] VITALS: BP 114/73
[2020-08-15 20:53] VITALS: BP 166/64
[2020-08-16] MEDS: HYDROmorphone 1 MG/ML, 1ML INJ IV PRN ×3 (00:28→09:42)
[2020-08-16 01:54] VITALS: BP 121/82
[2020-08-16] MEDS: D5%-LACTATED RINGERS 1,000 ML IV SCH ×2 (03:15→15:23)
[2020-08-16] MEDS: HYDROcodone/APAP 10/325 MG TABLET PO PRN ×2 (03:15→08:02)
[2020-08-16] MEDS: METRONIDAZOLE PMX 500MG/100ML 100 ML IV SCH (03:15)
[2020-08-16 06:08] LABS: BASOPHILS % (AUTO) 1 % (0-1); EOSINOPHILS % (AUTO) 11 % (1-7); LYMPHOCYTES % (AUTO) 35 % (22-44); MEAN CORPUSCULAR HEMOGLOBIN 27.7 pg (27.0-34.8); MEAN CORPUSCULAR HGB CONC 32.9 g/dL (32.4-35.8); MEAN PLATELET VOLUME 7.1 fL (7.4-10.4); MONOCYTES % (AUTO) 9 % (2-9); NEUTROPHILS % (AUTO) 45 % (42-75); PLATELET COUNT 527 x10^3/uL (130-400); RED BLOOD COUNT 3.59 x10^6/uL (3.82-5.3); RED CELL DISTRIBUTION WIDTH 14.5 % (9.6-15.2)
[2020-08-16 06:15] LABS: CHLORIDE 105 mmol/L (98-107)
[2020-08-16 06:23] LABS: MD NO
[2020-08-16 06:37] LABS: ANION GAP 5 mmol/L (5-15); CALCIUM 8.5 mg/dL (8.5-10.1); CREATININE 0.52 mg/dL (0.55-1.02)
[2020-08-16] MEDS: SENNA/DOCUSATE TABLET PO SCH (08:02)
[2020-08-16] MEDS: PANTOPRAZOLE 40 MG IV IVPush SCH (08:02)
[2020-08-16] MEDS: POLYETHYLENE GLYCOL 17 GM PACKET PO SCH ×2 (08:03→21:00)
[2020-08-16] MEDS: SODIUM CHLORIDE FLUSH 10ML SYR IVF SCH ×2 (08:03→21:44)
[2020-08-16 08:19] VITALS: BP 106/70
[2020-08-16] MEDS ORDERED: HYDROmorphone 4MG TABLET PO PRN (10:00)
[2020-08-16] MEDS ORDERED: FLUCONAZOLE 200 MG TABLET PO SCH (10:00)
[2020-08-16] MEDS: CEFDINIR 300 MG CAPSULE PO SCH ×2 (10:09→21:43)
[2020-08-16] MEDS: metroNIDAZOLE 500 MG TABLET PO SCH ×2 (10:09→17:40)
[2020-08-16 14:52] VITALS: BP 125/85
[2020-08-16] MEDS: HYDROmorphone 2MG TABLET PO PRN ×2 (15:48→21:56)
[2020-08-16] MEDS: PANTOPRAZOLE 40MG TABLET PO SCH (16:12)
[2020-08-16] MEDS: CLOTRIMAZOLE VAGINAL CRM 1%, 45GM VG SCH (20:00)
[2020-08-16 21:17] VITALS: BP 130/85
[2020-08-16] MEDS: ONDANSETRON 2MG/ML, 2ML IVPush PRN (21:56)
[2020-08-17 02:16] VITALS: BP 92/52
[2020-08-17] MEDS: metroNIDAZOLE 500 MG TABLET PO SCH ×3 (02:37→17:15)
[2020-08-17] MEDS: HYDROmorphone 2MG TABLET PO PRN ×5 (04:09→22:36)
[2020-08-17] MEDS: D5%-LACTATED RINGERS 1,000 ML IV SCH ×2 (04:10→15:11)
[2020-08-17 06:07] LABS: BASOPHILS % (AUTO) 1 % (0-1); EOSINOPHILS % (AUTO) 14 % (1-7); LYMPHOCYTES % (AUTO) 33 % (22-44); MEAN CORPUSCULAR HEMOGLOBIN 27.6 pg (27.0-34.8); MEAN CORPUSCULAR HGB CONC 32.7 g/dL (32.4-35.8); MONOCYTES % (AUTO) 9 % (2-9); NEUTROPHILS % (AUTO) 43 % (42-75); PLATELET COUNT 462 x10^3/uL (130-400); RED BLOOD COUNT 3.58 x10^6/uL (3.82-5.3); RED CELL DISTRIBUTION WIDTH 14.6 % (9.6-15.2)
[2020-08-17 06:28] LABS: MD NO
[2020-08-17] MEDS: PANTOPRAZOLE 40MG TABLET PO SCH ×2 (06:29→16:08)
[2020-08-17 07:11] VITALS: BP 108/61
[2020-08-17] MEDS: SENNA/DOCUSATE TABLET PO SCH (08:16)
[2020-08-17] MEDS: POLYETHYLENE GLYCOL 17 GM PACKET PO SCH ×2 (08:16→20:35)
[2020-08-17] MEDS: SODIUM CHLORIDE FLUSH 10ML SYR IVF SCH ×2 (08:16→20:35)
[2020-08-17] MEDS: CLOTRIMAZOLE VAGINAL CRM 1%, 45GM VG SCH ×2 (08:16→18:11)
[2020-08-17] MEDS: CEFDINIR 300 MG CAPSULE PO SCH ×2 (09:35→22:36)
[2020-08-17] MEDS ORDERED: OMNIPAQUE 350 MG/ML, 100ML BOTTLE ONE (10:19)
[2020-08-17 14:57] VITALS: BP 123/74
[2020-08-17 20:47] VITALS: BP 105/70
[2020-08-18 00:26] VITALS: BP 101/65
[2020-08-18] MEDS: metroNIDAZOLE 500 MG TABLET PO SCH ×3 (01:36→17:20)
[2020-08-18] MEDS: HYDROmorphone 1 MG/ML, 1ML INJ IV PRN ×2 (01:37→05:49)
[2020-08-18] MEDS: D5%-LACTATED RINGERS 1,000 ML IV SCH ×2 (04:16→17:22)
[2020-08-18] MEDS ORDERED: PANTOPRAZOLE 40 MG IV IVPush SCH (06:00)
[2020-08-18 07:35] VITALS: BP 104/68
[2020-08-18] MEDS: SODIUM CHLORIDE FLUSH 10ML SYR IVF SCH ×2 (08:24→20:34)
[2020-08-18] MEDS: POLYETHYLENE GLYCOL 17 GM PACKET PO SCH ×2 (10:35→20:31)
[2020-08-18] MEDS: CEFDINIR 300 MG CAPSULE PO SCH ×2 (10:35→22:20)
[2020-08-18] MEDS: SENNA/DOCUSATE TABLET PO SCH (10:35)
[2020-08-18] MEDS: HYDROmorphone 2MG TABLET PO PRN ×4 (10:37→22:31)
[2020-08-18 13:53] VITALS: BP 123/77
[2020-08-18] MEDS: PANTOPRAZOLE 40MG TABLET PO SCH (17:20)
[2020-08-18] MEDS: NYSTATIN TOPICAL POWDER 15GM TP SCH ×2 (17:46→20:34)
[2020-08-18 20:04] VITALS: BP 122/81
[2020-08-18] MEDS ORDERED: CLOTRIMAZOLE VAGINAL CRM 1%, 45GM VG SCH (22:30)
[2020-08-19 01:58] VITALS: BP 119/78
[2020-08-19] MEDS: metroNIDAZOLE 500 MG TABLET PO SCH ×3 (02:06→17:47)
[2020-08-19] MEDS: HYDROmorphone 2MG TABLET PO PRN ×5 (04:32→20:39)
[2020-08-19] MEDS: D5%-LACTATED RINGERS 1,000 ML IV SCH ×2 (05:55→16:06)
[2020-08-19] MEDS: PANTOPRAZOLE 40MG TABLET PO SCH ×2 (06:01→16:06)
[2020-08-19 07:16] VITALS: BP 110/72
[2020-08-19] MEDS: POLYETHYLENE GLYCOL 17 GM PACKET PO SCH (08:36)
[2020-08-19] MEDS: SODIUM CHLORIDE FLUSH 10ML SYR IVF SCH (08:36)
[2020-08-19] MEDS: SENNA/DOCUSATE TABLET PO SCH (08:36)
[2020-08-19] MEDS: NYSTATIN TOPICAL POWDER 15GM TP SCH (08:37)
[2020-08-19] MEDS ORDERED: FLUCONAZOLE 200 MG TABLET PO SCH (10:00)
[2020-08-19] MEDS: CEFDINIR 300 MG CAPSULE PO SCH (10:05)
[2020-08-19 10:37] LABS: BASOPHILS % (AUTO) 1 % (0-1); EOSINOPHILS % (AUTO) 13 % (1-7); LYMPHOCYTES % (AUTO) 28 % (22-44); MEAN CORPUSCULAR HEMOGLOBIN 27.2 pg (27.0-34.8); MEAN CORPUSCULAR HGB CONC 32.6 g/dL (32.4-35.8); MEAN PLATELET VOLUME 7.2 fL (7.4-10.4); MONOCYTES % (AUTO) 9 % (2-9); NEUTROPHILS % (AUTO) 49 % (42-75); PLATELET COUNT 453 x10^3/uL (130-400); RED BLOOD COUNT 3.91 x10^6/uL (3.82-5.3); RED CELL DISTRIBUTION WIDTH 14.7 % (9.6-15.2)
[2020-08-19 10:42] LABS: MD NO
[2020-08-19 10:44] LABS: ALANINE AMINOTRANSFERASE 13 U/L (12-78); ALBUMIN 3.4 g/dL (3.4-5.0); ANION GAP 8 mmol/L (5-15); CALCIUM 9.1 mg/dL (8.5-10.1); CHLORIDE 105 mmol/L (98-107); CREATININE 0.56 mg/dL (0.55-1.02)
[2020-08-19 10:47] LABS: ALKALINE PHOSPHATASE 125 U/L (45-117); BILIRUBIN,TOTAL 0.3 mg/dL (0.2-1.0); TOTAL PROTEIN 6.9 g/dL (6.4-8.2)
[2020-08-19 13:23] VITALS: BP 128/82
[2020-08-19] MEDS ORDERED: HYDROmorphone 2MG TABLET PO PRN (14:00)
[2020-08-19] MEDS ORDERED: POTASSIUM CHLORIDE 10 MEQ TABLET.ER PO PRN (14:00)
[2020-08-19] MEDS ORDERED: METR500T PO (14:36)
[2020-08-19] MEDS ORDERED: CEFD300C37 PO (14:36)
[2020-08-19] MEDS ORDERED: D5%-LACTATED RINGERS 1,000 ML IV SCH (20:00)
[2020-08-19 20:40] VITALS: BP 122/72
[2020-08-19] MEDS ORDERED: METOPROLOL TARTRATE 50 MG TAB PO SCH (21:00)
[2020-08-19] MEDS ORDERED: TRAZODONE 100MG TABLET PO SCH (21:00)
== END 2020-08-19 21:25 | disposition home or self-care (01) | DRG 863 ==
LOC: ED 03:24 → EDIP 03:44 → 4NE 03:47
PROVIDERS: ADMIT Internal Medicine; ATTEND Internal Medicine
PROC: 0F943ZX Drainage of Gallbladder, Percutaneous Approach, Diagnostic (ICD-10-PCS; principal; 2020-08-13)
DX: K68.11 Postprocedural retroperitoneal abscess (principal); F11.20 Opioid dependence, uncomplicated; E16.2 Hypoglycemia, unspecified; G40.909 Epilepsy, unspecified, not intractable, without status epilepticus; G89.4 Chronic pain syndrome; I10 Essential (primary) hypertension; I27.81 Cor pulmonale (chronic); K59.03 Drug induced constipation; T40.2X5A Adverse effect of other opioids, initial encounter; Z53.20 Procedure and treatment not carried out because of patient's decision for unspecified reasons; Z80.42 Family history of malignant neoplasm of prostate; Z90.49 Acquired absence of other specified parts of digestive tract; Z90.710 Acquired absence of both cervix and uterus; Z98.1 Arthrodesis status; Z98.84 Bariatric surgery status; D64.9 Anemia, unspecified; R94.8 Abnormal results of function studies of other organs and systems; M54.9 Dorsalgia, unspecified; Z88.5 Allergy status to narcotic agent; Z20.828 Contact with and (suspected) exposure to other viral communicable diseases
CPT/HCPCS: 36415; 74240; 75989; 96374; 99285; J7121; 49405; 74177; 78226; 80048; 80053; 82962; 83605; 83690; 83735; 84703; 85025; 85610; 87040; 87070; 87075; 87205; 87635; 99156; 99157; G0378; J0696; J1170; J2250; J2405; J3010; Q9967; A9537; C9113; J2310; J3475; J7030; J7120